=== PATIENT | female | born 2000 | race Caucasian/White ===

== ENCOUNTER 2019-06-08 11:34 | Emergency (ER) | payer OTHER ==
--- NOTE | 2019-06-08 12:16 | UC ---
General HPI - HPI Summary HPI Summary: 18-year-old female presents with complaints of sores in her mouth and sore throat. States 6 days ago she had onset of the sore throat with a fever of 102 F. No fever since that time. States the next day she started developing some canker sores to the side of her tongue and underneath which are still present and are painful. Denies headache, ear pain, nasal congestion, dysphagia, or cough. - History of Current Complaint Chief Complaint: UCGeneralIllness Stated Complaint: SORES IN MOUTH Time Seen by Provider: 06/08/19 12:10 Hx Obtained From: Patient Hx Last Menstrual Period: Pain Intensity: 8 - Allergy/Home Medications Allergies/Adverse Reactions: Allergies Allergy/AdvReac Type Severity Reaction Status Date / Time No Known Allergies Allergy Verified 06/08/19 11:49 PMH/Surg Hx/FS Hx/Imm Hx Previously Healthy: Yes - Denies significant PMH - Surgical History Surgical History: None - Family History Known Family History: Positive: Non-Contributory - Social History Occupation: Unemployed Lives: Alone Alcohol Use: None Substance Use Type: None Smoking Status (MU): Former Smoker Review of Systems All Other Systems Reviewed And Are Negative: Yes Constitutional: Positive: Fever Skin: Negative: Rash Eyes: Negative: Drainage, Eye Redness ENT: Positive: Sore Throat. Negative: Ear Ache, Nasal Discharge, Sinus Congestion, Sinus Pain/Tenderness Respiratory: Negative: Cough Cardiovascular: Positive: Negative Gastrointestinal: Positive: Negative Genitourinary: Positive: Negative Musculoskeletal: Positive: Negative Neurological: Positive: Negative Is Patient Immunocompromised?: No Physical Exam - Summary Physical Exam Summary: GENERAL APPEARANCE: Well developed, well nourished, alert and cooperative, and appears to be in no acute distress. EYES: Conjunctiva clear. No drainage. PERRL, EOM intact. Vision is grossly intact. EARS: External auditory canals and tympanic membranes clear, hearing grossly intact. NOSE: No nasal discharge. MOUTH/THROAT: Mild pharyngeal erythema. No tonsilar inflammation, swelling, exudate, or lesions. Uvula midline. Teeth in good general condition. There are 3 aphthous ulcers noted, 2 to the left side of the tongue and 1 under the tongue. NECK: Neck supple, non-tender without lymphadenopathy. CARDIAC: Normal S1 and S2. No S3, S4 or murmurs. Rhythm is regular. There is no peripheral edema, cyanosis or pallor. Extremities are warm and well perfused. Capillary refill is less than 2 seconds. Peripheral pulses intact. LUNGS: Clear to auscultation without rales, rhonchi, wheezing or diminished breath sounds. ABDOMEN: Positive bowel sounds. Soft, nondistended, nontender. No guarding or rebound. No masses or hepatosplenomegally. MUSKULOSKELETAL: ROM intact to all extremities. No joint erythema or tenderness. Normal muscular development. Normal gait. SKIN: Skin normal color, texture and turgor with no lesions or eruptions. Triage Information Reviewed: Yes Vital Signs: Initial Vital Signs Temp 98.7 F 06/08/19 11:44 Pulse 110 06/08/19 11:44 Resp 20 06/08/19 11:44 BP 136/82 06/08/19 11:44 Pulse Ox 100 06/08/19 11:44 Vital Signs Reviewed: Yes Course/Dx - Course Course Of Treatment: 18-year-old female presents with complaints of sores in her mouth and sore throat. States 6 days ago she had onset of the sore throat with a fever of 102 F. No fever since that time. States the next day she started developing some canker sores to the side of her tongue and underneath which are still present and are painful. Denies headache, ear pain, nasal congestion, dysphagia, or cough. Afebrile. Vital signs stable. Patient had mild pharyngeal erythema, no tonsilar inflammation, swelling, exudate, or lesions, midline uvula, 3 aphthous ulcers noted, 2 to the left side of the tongue and 1 under the tongue, no cervical lymphadenopathy, and otherwise unremarkable exam. Rapid strep test was negative. Recommending symptomatic treatment for viral pharyngitis and aphthous ulcers. Will provide her with a prescription for Magic mouthwash 5 mL 4 times a day as needed for mouth pain. She is to follow-up with her primary care provider in 3 days if symptoms do not improve. Despite her guidance and warning symptoms were reviewed with the patient. Verbalizes understanding and agrees with plan of care. - Diagnoses Provider Diagnosis: Aphthous ulcer of mouth, Viral pharyngitis Discharge - Sign-Out/Discharge Documenting (check all that apply): Patient Departure All imaging exams completed and their final reports reviewed: No Studies - Discharge Plan Condition: Stable Disposition: HOME Prescriptions: Magic Mouth Was-KATHERINE/MAAL/LIDO* 5 ml SWISH SPIT QID #140 ml Patient Education Materials: Canker Sores (ED) Referrals: No Primary Care Phys,NOPCP [Primary Care Provider] - Additional Instructions: Your rapid strep test in the clinic today was negative. Your symptoms are likely from a viral infection. Viral infections do not respond to antibiotics and are limited to the treatment of symptoms. Viral infections typically run their course in 7-10 days. You also have several canker sores that are common during viral illness. These typically resolve on their own after several days. Use magic mouth wash 5 ml swish and spit 4 times a day as needed for mouth discomfort. Drink plenty of fluids to avoid dehydration especially if you are running any fever. Use salt water gargles several times a day. Take over the counter acetaminophen (Tylenol) or ibuprofen (Advil, Motrin) according to directions as needed for pain or fever. You may also use Chloraseptic spray or Cepacol lonzenges according to directions which contain a numbing medication and can provide some temporary relief from your sore throat. Return here or follow up with your primary care provider in 3 days if symptoms persist. Seek immediate medical attention in the emergency room if you have fever greater than 100.5 F despite taking acetaminophen or ibuprofen, are unable to swallow or develop drooling, are unable to open your mouth fully, are unable to eat or drink, have pain that is not relieved with over the counter pain medication, or have any difficulty breathing. - Billing Disposition and Condition Condition: STABLE Disposition: Home
== END 2019-06-08 12:41 | disposition home or self-care (01) ==
LOC: UCEAST 11:34
DX: J02.9 Acute pharyngitis, unspecified (principal); K12.1 Other forms of stomatitis; Z87.891 Personal history of nicotine dependence
CPT/HCPCS: 87651; 99202; G0463